=== PATIENT | male | born 1995 | race Caucasian/White ===

== ENCOUNTER 2016-12-17 03:20 | Emergency (ER) | payer BC ==
[2016-12-17] MEDS ORDERED: HYDROmorphone HCL 1 MG/ML SYRINGE (J1170) As Ordered ONE (03:43)
[2016-12-17] MEDS ORDERED: PROPOFOL 200 MG/20 ML VIAL As Ordered ONE (04:07)
--- NOTE | 2016-12-17 04:58 | EDDOCDS ---
Physician Documentation [facility] Name: Brian Aguilera Age: 20 yrs Sex: Male : 1995 Arrival Date: 12/17/2016 Time: 03:20 Bed 3 Private MD: Disposition: 12/17/16 04:19 Discharged to Home/Self Care. Impression: Posterior dislocation of left ulnohumeral joint. - Condition is Stable. - Work Release Form - 1 day, Medication Reconciliation, Local Pharmacy Hours form. - Follow up: Praveen Walter; When: Call to arrange an appointment; Reason: Recheck today's complaints. - Problem is new. - Symptoms are resolved. Historical: - Allergies: No known drug Allergies; - PMHx: none; - PSHx: none; - Social history: Smoking status: Patient states was never smoker of tobacco. No barriers to communication noted, The patient speaks fluent Chinese, Speaks appropriately for age. - Family history: Not pertinent. - : The pt / caregiver states he / she is not on anticoagulants. Home medication list is obtained from the patient. - Exposure Risk Screening:: None identified. Vital Signs: 12/17 03:29 BP 141 / 81; Pulse 80; Resp 18; Temp 98.6(O); Pulse Ox 98% on R/A; Weight 90.72 kg / kmg1 200 lbs (R); Height 5 ft. 10 in. (177.80 cm) (R); Pain 6/10; 04:13 BP 156 / 89 (auto/); af2 04:13 BP 160 / 83 (auto/); af2 04:13 Pulse 90 MON; Resp 18; Pulse Ox 100% on 2 lpm NC; af2 04:14 Pulse 81 MON; Resp 18 S; Pulse Ox 100% on 2 lpm NC; af2 04:19 BP 167 / 96 (auto/); af2 04:20 Pulse 77 MON; Resp 18 S; Pulse Ox 98% on 2 lpm NC; af2 04:23 Pulse 75 MON; Resp 18 S; Pulse Ox 98% on 2 lpm NC; af2 04:24 BP 162 / 78 (auto/); af2 04:28 BP 166 / 79 (auto/); af2 04:28 Pulse 74 MON; Resp 18 S; Pulse Ox 98% on 2 lpm NC; af2 04:31 BP 167 / 78 (auto/); af2 04:32 Pulse 72 MON; Resp 18 S; Pulse Ox 99% on 2 lpm NC; af2 04:33 BP 163 / 75 (auto/); af2 04:33 Pulse 73 MON; Resp 18 S; Pulse Ox 99% on 2 lpm NC; af2 04:38 BP 162 / 74 (auto/); af2 04:38 Pulse 80 MON; Resp 18 S; Pulse Ox 98% on 2 lpm NC; af2 03:29 Body Mass Index 28.70 (90.72 kg, 177.80 cm) [facility] [place] Procedures: 04:17 Moderate sedation: Pre-procedure assessment: ASA physical classification: I - healthy, cs11 no underlying organic disease, Airway assessment: able to hyperextend neck, able to maintain airway, can open mouth without difficulty, Mallampati classification of tongue size: I - faucial pillars, soft palate, and uvula can be fully visualized, Monitoring during procedure: nurse at bedside at all times, automatic splicing machine operator, continuous pulse oximetry, Medications employed: Propofol _ mg? 100 mgs. Post-procedure assessment: the patient is not sedated, Respiratory status: even and unlabored, Total time spent by provider performing sedation 15 minutes. 04:17 Joint Reduction: of the left elbow, using traction, manipulation, Patient tolerated cs11 well. Post reduction film - reveals normal alignment. MDM: 03:39 Elbow, (AP\E\Lat) Ordered. EDMS 03:42 Dilaudid - HYDROmorphone 1 mg IM once ordered. cs11 03:57 IV Saline Lock ordered. cs11 03:59 Elbow, (AP\E\Lat) Ordered. EDMS 04:06 NS 0.9% 1000 ml IV at bolus once ordered. cs11 04:06 Oxygen at 2L/min via NC ordered. cs11 04:21 Sling ordered. cs11 04:21 Propofol (PF) 100 mg IVP once ordered. cs11 04:32 Financial registration complete. hs2 04:42 [facility] [place] Agreement was scanned into [employer] and attached to record. hs2 Administered Medications: 03:49 Drug: Dilaudid - HYDROmorphone 1 mg [hydromorphone 1 mg/mL injection syringe (1 mL)] af2 Route: IM; Site: right deltoid; 04:30 Follow up: Response: Pain is decreased af2 04:15 Drug: Propofol (PF) 100 mg [propofol (PF) 200 mg/20 mL (10 mg/mL) intravenous emulsion af2 (10 mL)] Route: IVP; Site: right antecubital; 04:44 Follow up: Response: No Adverse Reaction af2 04:20 Drug: NS 0.9% 1000 ml [sodium chloride 0.9 % intravenous solution] Route: IV; Rate: af2 bolus; Site: right antecubital; Signatures: Dispatcher [employer] Malini Bills RN RN kmg1 Cristino Ramírez DO DO cs11 Tali Reyes RN RN af2 Kailey Deshpande, Reg Reg hs2 The chart was reviewed and I authenticate all verbal orders and agree with the evaluation and treatment provided.Attachments: 04:42 [facility] Payment Agreement hs2 MTDD
--- NOTE | 2016-12-17 04:58 | EDDOCDS ---
Nurse's Notes [facility] Name: Brian Aguilera Age: 20 yrs Sex: Male : 1995 Arrival Date: 12/17/2016 Time: 03:20 Bed 3 Private MD: Diagnosis: Posterior dislocation of left ulnohumeral joint Presentation: 12/17 03:26 Presenting complaint: Patient states: Was wrestling with his cousin and injured left kmg1 elbow. Suicide/Homicide risk assessment- the patient denies having any suicidal and/or homicidal ideations and does not present with any other emotional, behavioral or mental health complaints. Status: Patient is not a coordinator of genetic services or dependent. Transition of care: patient was not received from another setting of care. 03:26 Acuity: STEPHON Level 3 [facility] [place] 03:26 Method Of Arrival: Walkin/Carried/Asstd [facility] [place] 04:55 Adult Sepsis Screening: The patient does not have new or worsening altered mentation. af2 Patient's respiratory rate is less than 22. Systolic blood pressure is greater than 100. Patient has a qSOFA score of 0- Negative Sepsis Screen. Triage Assessment: 03:29 General: Appears in no apparent distress, uncomfortable, Behavior is appropriate for km age, cooperative, pleasant. Pain: Location: left elbow Pain currently is 6 out of 10 on a pain scale. Quality of pain is described as aching. Pt Declines HIV testing. Musculoskeletal: Circulation, motion, and sensation intact Capillary refill < 3 seconds. Historical: - Allergies: No known drug Allergies; - PMHx: none; - PSHx: none; - Social history: Smoking status: Patient states was never smoker of tobacco. No barriers to communication noted, The patient speaks fluent Irish, Speaks appropriately for age. - Family history: Not pertinent. - : The pt / caregiver states he / she is not on anticoagulants. Home medication list is obtained from the patient. - Exposure Risk Screening:: None identified. Screenin:52 Screening information is obtained from the patient. Fall risk: No risks identified. af2 Assistance ADL's: requires no assistance with activities of daily living. Abuse/DV Screen: The patient / caregiver reports he/she is: not in a situation that causes fear, pain or injury. Nutritional screening: No deficits noted. Advance Directives: Currently, there is no health care proxy. home support is adequate. Assessment: 03:51 General: Appears in no apparent distress, uncomfortable, Behavior is cooperative. af2 Musculoskeletal: Range of motion intact in left arm and left elbow Bony deformity noted of left elbow Swelling present in left elbow. 04:27 General: pt tolerated procedure well, A&Ox3. resp easy and unlabored.. af2 Vital Signs: 03:29 BP 141 / 81; Pulse 80; Resp 18; Temp 98.6(O); Pulse Ox 98% on R/A; Weight 90.72 kg (R); kmg1 Height 5 ft. 10 in. (177.80 cm) (R); Pain 6/10; 04:13 BP 156 / 89 (auto/); af2 04:13 BP 160 / 83 (auto/); af2 04:13 Pulse 90 MON; Resp 18; Pulse Ox 100% on 2 lpm NC; af2 04:14 Pulse 81 MON; Resp 18 S; Pulse Ox 100% on 2 lpm NC; af2 04:19 BP 167 / 96 (auto/); af2 04:20 Pulse 77 MON; Resp 18 S; Pulse Ox 98% on 2 lpm NC; af2 04:23 Pulse 75 MON; Resp 18 S; Pulse Ox 98% on 2 lpm NC; af2 04:24 BP 162 / 78 (auto/); af2 04:28 BP 166 / 79 (auto/); af2 04:28 Pulse 74 MON; Resp 18 S; Pulse Ox 98% on 2 lpm NC; af2 04:31 BP 167 / 78 (auto/); af2 04:32 Pulse 72 MON; Resp 18 S; Pulse Ox 99% on 2 lpm NC; af2 04:33 BP 163 / 75 (auto/); af2 04:33 Pulse 73 MON; Resp 18 S; Pulse Ox 99% on 2 lpm NC; af2 04:38 BP 162 / 74 (auto/); af2 04:38 Pulse 80 MON; Resp 18 S; Pulse Ox 98% on 2 lpm NC; af2 03:29 Body Mass Index 28.70 (90.72 kg, 177.80 cm) [facility] [place] Vitals: 03:29 Log In Time: December 17, 2016 at 03:22. [facility] [place] ED Course: 03:21 Patient visited by Kailey Deshpande, Reg. hs2 03:21 Patient moved to Waiting hs2 03:27 Triage Initiated kmg1 03:36 Patient visited by Malini Gilliam, ABIGAIL. kmg1 03:36 Patient moved to 10 sls1 03:37 Cristino Ramírez DO is Attending Physician. cs11 03:37 Patient visited by Cristino Ramírez DO. cs11 03:53 Patient visited by Tali Reyes RN. af2 03:53 The patient / caregiver is instructed regarding the plan of care and ED course. Patient af2 has correct armband on for positive identification. 04:09 Patient moved to 3 [facility] 04:18 Praveen Walter is Referral Physician. cs11 04:26 Inserted saline lock: 18 gauge in right antecubital area The patient tolerated the af2 procedure well. 04:26 Assisted Provider with Joint reduction. af2 04:27 Patient visited by Tali Reyes RN. af2 04:42 Patient visited by Tali Reyes RN. af2 04:42 [facility] Payment Agreement was scanned into [employer] and attached to record. hs2 04:47 Patient name changed from Brian\S\L\S\Gordinier\S\ to Brian\S\Erasmo\S\Gordinier. EDMS M. Sedation: 04:22 Pre-procedure: Name of procedure: reduction of left elbow Monitoring RN: Tali mitchell2 RN Other Staff: Manuel Brown, RT; Dr. Ramírez Reviewed instructions and expectations with patient, patient's mother, Has had drug/anesthesia reactions to no Reviewed patient's current meds list. surveillance analyst on. Cardiac rhythm Sinus rhythm Pulse ox on. Oxygen via nasal cannula \T\ 2L/min 04:22 Q 5 minute assessment Level of Consciousness: Alert / Oriented Color: Pale Skin: Warm / Dry Pain: 04:22 See Trend VS 04:22 Intra-procedure: Procedure began at 04:15 Patient response: remains sedated, skin warm/dry, moaning, obeys commands, resps even/unlabored, IV patent. 04:22 Post-procedure: Procedure ended at 04:17 the total procedure time was less than 30 minutes. Administered Medications: 03:49 Drug: Dilaudid - HYDROmorphone 1 mg [hydromorphone 1 mg/mL injection syringe (1 mL)] af2 Route: IM; Site: right deltoid; 04:30 Follow up: Response: Pain is decreased af2 04:15 Drug: Propofol (PF) 100 mg [propofol (PF) 200 mg/20 mL (10 mg/mL) intravenous emulsion af2 (10 mL)] Route: IVP; Site: right antecubital; 04:44 Follow up: Response: No Adverse Reaction af2 04:20 Drug: NS 0.9% 1000 ml [sodium chloride 0.9 % intravenous solution] Route: IV; Rate: af2 bolus; Site: right antecubital; RT: 04:17 Sedation Time: 30Minutes. O2 via nasal cannula \T\ 2L/min. jc3 Order Results: There are currently no results for this order. Outcome: 04:19 Discharge ordered by Provider. cs11 04:54 Discharge Assessment: Patient awake, alert and oriented x 3. No cognitive and/or af2 functional deficits noted. Patient verbalized understanding of disposition instructions. patient administered narcotics - yes. Pt provided with safe discharge. The following High Risk Discharge criteria are identified: None. Discharged to home ambulatory, with parent. Condition: stable. Discharge instructions given to patient, parents Instructed on discharge instructions, follow up and referral plans. medication usage, no driving heavy equipment, Demonstrated understanding of instructions, medications, Pt was receptive of discharge instructions/ teaching. No special radiology studies were completed. Property :Personal belongings accompany Pt. 04:56 Patient left the ED. af2 Signatures: Dispatcher [employer] EDMS Malini Gilliam, RN RN kmg1 Anthony Mirza jc3 Aubrie Cody RN RN sls1 Cristino Ramírez, DO cs11 Zuri Anthony, Building Construction Supervisor Unit Tali Thomson RN RN af2 Kailey Deshpande, Reg Reg hs2 MTDD
--- NOTE | 2016-12-17 07:29 | REP ---
Clinical: Trauma. Technique: AP and lateral views. Findings: Lateral view demonstrates posterior dislocation at the elbow. No obvious acute fracture. Impression: Posterior dislocation at the elbow. Signed by Aguilar Flores MD 12/17/2016 07:20 A
--- NOTE | 2016-12-17 07:34 | REP ---
Clinical: Status post reduction. Technique: Single portable lateral view of the left elbow. Findings: Satisfactory reduction is appreciated when compared to prior examination. No obvious acute fracture. Joint effusion and elevation of the anterior fat pad noted. Follow-up examination in 5-7 days may be warranted to evaluate for small occult fracture. Impression: Satisfactory reduction. Elevation of the anterior fat pad with suspected underlying effusion. Consider repeat evaluation in 5-7 days to evaluate for subtle occult injury. Signed by Aguilar Flores MD 12/17/2016 07:25 A
--- NOTE | 2016-12-19 05:57 | EDDOCDS ---
Nurse's Notes [facility] Name: Brian Aguilera Age: 20 yrs Sex: Male : 1995 Arrival Date: 12/17/2016 Time: 03:20 Bed 3 Private MD: Diagnosis: Posterior dislocation of left ulnohumeral joint Presentation: 12/17 03:26 Presenting complaint: Patient states: Was wrestling with his cousin and injured left kmg1 elbow. Suicide/Homicide risk assessment- the patient denies having any suicidal and/or homicidal ideations and does not present with any other emotional, behavioral or mental health complaints. Status: Patient is not a adult services librarian or dependent. Transition of care: patient was not received from another setting of care. 03:26 Acuity: [place] Level 3 [facility] [place] Method Of Arrival: [place]in[place] [facility] [place] 04:55 Adult Sepsis Screening: The patient does not have new or worsening altered mentation. af2 Patient's respiratory rate is less than 22. Systolic blood pressure is greater than 100. Patient has a qSOFA score of 0- Negative Sepsis Screen. Triage Assessment: 03:29 General: Appears in no apparent distress, uncomfortable, Behavior is appropriate for km age, cooperative, pleasant. Pain: Location: left elbow Pain currently is 6 out of 10 on a pain scale. Quality of pain is described as aching. Pt Declines HIV testing. Musculoskeletal: Circulation, motion, and sensation intact Capillary refill < 3 seconds. Historical: - Allergies: No known drug Allergies; - PMHx: none; - PSHx: none; - Social history: Smoking status: Patient states was never smoker of tobacco. No barriers to communication noted, The patient speaks fluent Arabic, Speaks appropriately for age. - Family history: Not pertinent. - : The pt / caregiver states he / she is not on anticoagulants. Home medication list is obtained from the patient. - Exposure Risk Screening:: None identified. Screenin:52 Screening information is obtained from the patient. Fall risk: No risks identified. af2 Assistance ADL's: requires no assistance with activities of daily living. Abuse/DV Screen: The patient / caregiver reports he/she is: not in a situation that causes fear, pain or injury. Nutritional screening: No deficits noted. Advance Directives: Currently, there is no health care proxy. home support is adequate. Assessment: 03:51 General: Appears in no apparent distress, uncomfortable, Behavior is cooperative. af2 Musculoskeletal: Range of motion intact in left arm and left elbow Bony deformity noted of left elbow Swelling present in left elbow. 04:27 General: pt tolerated procedure well, A&Ox3. resp easy and unlabored.. af2 Vital Signs: 03:29 BP 141 / 81; Pulse 80; Resp 18; Temp 98.6(O); Pulse Ox 98% on R/A; Weight 90.72 kg (R); kmg1 Height 5 ft. 10 in. (177.80 cm) (R); Pain 6/10; 04:13 BP 156 / 89 (auto/); af2 04:13 BP 160 / 83 (auto/); af2 04:13 Pulse 90 MON; Resp 18; Pulse Ox 100% on 2 lpm NC; af2 04:14 Pulse 81 MON; Resp 18 S; Pulse Ox 100% on 2 lpm NC; af2 04:19 BP 167 / 96 (auto/); af2 04:20 Pulse 77 MON; Resp 18 S; Pulse Ox 98% on 2 lpm NC; af2 04:23 Pulse 75 MON; Resp 18 S; Pulse Ox 98% on 2 lpm NC; af2 04:24 BP 162 / 78 (auto/); af2 04:28 BP 166 / 79 (auto/); af2 04:28 Pulse 74 MON; Resp 18 S; Pulse Ox 98% on 2 lpm NC; af2 04:31 BP 167 / 78 (auto/); af2 04:32 Pulse 72 MON; Resp 18 S; Pulse Ox 99% on 2 lpm NC; af2 04:33 BP 163 / 75 (auto/); af2 04:33 Pulse 73 MON; Resp 18 S; Pulse Ox 99% on 2 lpm NC; af2 04:38 BP 162 / 74 (auto/); af2 04:38 Pulse 80 MON; Resp 18 S; Pulse Ox 98% on 2 lpm NC; af2 03:29 Body Mass Index 28.70 (90.72 kg, 177.80 cm) [facility] [place]als: 03:29 Log In Time: December 17, 2016 at 03:22. [facility] [place] [place] Course: 03:21 Patient visited by Kailey Deshpande, Reg. hs2 03:21 Patient moved to Waiting hs2 03:27 Triage Initiated kmg1 03:36 Patient visited by Malini Gilliam, ABIGAIL. kmg1 03:36 Patient moved to 10 sls1 03:37 Cristino Ramírez DO is Attending Physician. cs11 03:37 Patient visited by Cristino Ramírez DO. cs11 03:53 Patient visited by Tali Reyes RN. af2 03:53 The patient / caregiver is instructed regarding the plan of care and ED course. Patient af2 has correct armband on for positive identification. 04:09 Patient moved to 3 [facility] 04:18 Praveen Walter is Referral Physician. cs11 04:26 Inserted saline lock: 18 gauge in right antecubital area The patient tolerated the af2 procedure well. 04:26 Assisted Provider with Joint reduction. af2 04:27 Patient visited by Tali Reyes RN. af2 04:42 Patient visited by Tali Reyes RN. af2 04:42 [facility] [place] [place] Payment Agreement was scanned into [employer] and attached to record. hs2 04:47 Patient name changed from Biran\S\L\S\Gordinier\S\ to Brian\S\Erasmo\S\Gordinier. EDMS 07:30 Elbow, (AP\E\Lat) Returned. EDMS 07:59 Elbow, (AP\E\Lat) Returned. EDMS 08:30 T-Sheet-- Draft Copy was scanned into [employer] and attached to record. [facility] 12/18 16:21 Consents was scanned into [employer] and attached to record. 16:21 [place] Protocol was scanned into [employer] and attached to record. alphonse Sosa Sedation: 12/17 04:22 Pre-procedure: Name of procedure: reduction of left elbow Monitoring RN: Tali mitchell2 RN Other Staff: Manuel Brown, RT; Dr. Ramírez Reviewed instructions and expectations with patient, patient's mother, Has had drug/anesthesia reactions to no Reviewed patient's current meds list. spine nurse on. Cardiac rhythm Sinus rhythm Pulse ox on. Oxygen via nasal cannula \T\ 2L/min Q 5 minute assessment Level of Consciousness: Alert / Oriented Color: Pale Skin: Warm / Dry Pain: 10 / 10 See Trend VS Intra-procedure: Procedure began at 04:15 Patient response: remains sedated, skin warm/dry, moaning, obeys commands, resps even/unlabored, IV patent. Post-procedure: Procedure ended at 04:17 the total procedure time was less than 30 minutes. Administered Medications: 03:49 Drug: Dilaudid - HYDROmorphone 1 mg [hydromorphone 1 mg/mL injection syringe (1 mL)] af2 Route: IM; Site: right deltoid; 04:30 Follow up: Response: Pain is decreased af2 04:15 Drug: Propofol (PF) 100 mg [propofol (PF) 200 mg/20 mL (10 mg/mL) intravenous emulsion af2 (10 mL)] Route: IVP; Site: right antecubital; 04:44 Follow up: Response: No Adverse Reaction af2 04:20 Drug: NS 0.9% 1000 ml [sodium chloride 0.9 % intravenous solution] Route: IV; Rate: af2 bolus; Site: right antecubital; Attachments: 12/18 16:21 Consents 16:21 [place] Protocol gb RT: 12/17 04:17 Sedation Time: 30Minutes. O2 via nasal cannula \T\ 2L/min. jc3 Order Results: Radiology Order: Elbow, (AP\E\Lat) Test: Elbow, (AP\E\Lat) REASON FOR EXAMINATION: Trauma; Clinical: Trauma.; ; Technique: AP and lateral views.; ; Findings:; Lateral view demonstrates posterior dislocation at the elbow. No obvious acute; fracture.; ; Impression:; Posterior dislocation at the elbow.; ; ; Signed by; Aguilar Flores MD 12/17/2016 07:20 A; Radiology Order: Elbow, (AP\E\Lat) Test: Elbow, (AP\E\Lat) REASON FOR EXAMINATION: redux; Clinical: Status post reduction.; ; Technique: Single portable lateral view of the left elbow.; ; Findings:; Satisfactory reduction is appreciated when compared to prior examination. No; obvious acute fracture. Joint effusion and elevation of the anterior fat pad; noted. Follow-up examination in 5-7 days may be warranted to evaluate for small; occult fracture.; ; Impression:; Satisfactory reduction.; Elevation of the anterior fat pad with suspected underlying effusion.; Consider repeat evaluation in 5-7 days to evaluate for subtle occult injury.; ; ; Signed by; Aguilar Flores MD 12/17/2016 07:25 A; Outcome: 04:19 Discharge ordered by Provider. cs11 04:54 Discharge Assessment: Patient awake, alert and oriented x 3. No cognitive and/or af2 functional deficits noted. Patient verbalized understanding of disposition instructions. patient administered narcotics - yes. Pt provided with safe discharge. The following High Risk Discharge criteria are identified: None. Discharged to home ambulatory, with parent. Condition: stable. Discharge instructions given to patient, parents Instructed on discharge instructions, follow up and referral plans. medication usage, no driving heavy equipment, Demonstrated understanding of instructions, medications, Pt was receptive of discharge instructions/ teaching. No special radiology studies were completed. Property :Personal belongings accompany Pt. 04:56 Patient left the ED. af2 Signatures: Dispatcher [employer] EDMS Malini Gilliam, RN RN kmg1 Dixie Duarte, Reg Reg gb Anthony Mirza jc3 Aubrie Cody RN RN sls1 Cristino Ramírez, DO DO cs11 Zuri Anthony, Nursing Staff Development Coordinator Unit Tali Thomson RN RN af2 Kailey Deshpande, Reg Reg hs2 Reshma Driver Chart Complete [facility]
--- NOTE | 2016-12-19 05:57 | EDDOCDS ---
Physician Documentation [facility] Name: Brian Aguilera Age: 20 yrs Sex: Male : 1995 Arrival Date: 12/17/2016 Time: 03:20 Bed 3 Private MD: Disposition: 12/17/16 04:19 Discharged to Home/Self Care. Impression: Posterior dislocation of left ulnohumeral joint. - Condition is Stable. - Work Release Form - 1 day, Medication Reconciliation, Local Pharmacy Hours form. - Follow up: Praveen Walter; When: Call to arrange an appointment; Reason: Recheck today's complaints. - Problem is new. - Symptoms are resolved. Historical: - Allergies: No known drug Allergies; - PMHx: none; - PSHx: none; - Social history: Smoking status: Patient states was never smoker of tobacco. No barriers to communication noted, The patient speaks fluent Armenian, Speaks appropriately for age. - Family history: Not pertinent. - : The pt / caregiver states he / she is not on anticoagulants. Home medication list is obtained from the patient. - Exposure Risk Screening:: None identified. Vital Signs: 12/17 03:29 BP 141 / 81; Pulse 80; Resp 18; Temp 98.6(O); Pulse Ox 98% on R/A; Weight 90.72 kg / kmg1 200 lbs (R); Height 5 ft. 10 in. (177.80 cm) (R); Pain 6/10; 04:13 BP 156 / 89 (auto/); af2 04:13 BP 160 / 83 (auto/); af2 04:13 Pulse 90 MON; Resp 18; Pulse Ox 100% on 2 lpm NC; af2 04:14 Pulse 81 MON; Resp 18 S; Pulse Ox 100% on 2 lpm NC; af2 04:19 BP 167 / 96 (auto/); af2 04:20 Pulse 77 MON; Resp 18 S; Pulse Ox 98% on 2 lpm NC; af2 04:23 Pulse 75 MON; Resp 18 S; Pulse Ox 98% on 2 lpm NC; af2 04:24 BP 162 / 78 (auto/); af2 04:28 BP 166 / 79 (auto/); af2 04:28 Pulse 74 MON; Resp 18 S; Pulse Ox 98% on 2 lpm NC; af2 04:31 BP 167 / 78 (auto/); af2 04:32 Pulse 72 MON; Resp 18 S; Pulse Ox 99% on 2 lpm NC; af2 04:33 BP 163 / 75 (auto/); af2 04:33 Pulse 73 MON; Resp 18 S; Pulse Ox 99% on 2 lpm NC; af2 04:38 BP 162 / 74 (auto/); af2 04:38 Pulse 80 MON; Resp 18 S; Pulse Ox 98% on 2 lpm NC; af2 03:29 Body Mass Index 28.70 (90.72 kg, 177.80 cm) [facility] [place]: 04:17 Moderate sedation: Pre-procedure assessment: ASA physical classification: I - healthy, cs11 no underlying organic disease, Airway assessment: able to hyperextend neck, able to maintain airway, can open mouth without difficulty, Mallampati classification of tongue size: I - faucial pillars, soft palate, and uvula can be fully visualized, Monitoring during procedure: nurse at bedside at all times, electronic device monitor, continuous pulse oximetry, Medications employed: Propofol _ mg? 100 mgs. Post-procedure assessment: the patient is not sedated, Respiratory status: even and unlabored, Total time spent by provider performing sedation 15 minutes. 04:17 Joint Reduction: of the left elbow, using traction, manipulation, Patient tolerated cs11 well. Post reduction film - reveals normal alignment. MDM: 03:39 Elbow, (AP\E\Lat) Ordered. EDMS 03:42 Dilaudid - HYDROmorphone 1 mg IM once ordered. cs11 03:57 IV Saline Lock ordered. cs11 03:59 Elbow, (AP\E\Lat) Ordered. EDMS 04:06 NS 0.9% 1000 ml IV at bolus once ordered. cs11 04:06 Oxygen at 2L/min via NC ordered. cs11 04:21 Sling ordered. cs11 04:21 Propofol (PF) 100 mg IVP once ordered. cs11 04:32 Financial registration complete. hs2 04:42 [facility] [place] Payment Agreement was scanned into [employer] and attached to record. hs2 08:30 T-Sheet-- Draft Copy was scanned into [employer] and attached to record. se 12/18 16:21 Consents was scanned into [employer] and attached to record. gb 16:21 [place] Protocol was scanned into [employer] and attached to record. Administered Medications: 12/17 03:49 Drug: Dilaudid - HYDROmorphone 1 mg [hydromorphone 1 mg/mL injection syringe (1 mL)] af2 Route: IM; Site: right deltoid; 04:30 Follow up: Response: Pain is decreased af2 04:15 Drug: Propofol (PF) 100 mg [propofol (PF) 200 mg/20 mL (10 mg/mL) intravenous emulsion af2 (10 mL)] Route: IVP; Site: right antecubital; 04:44 Follow up: Response: No Adverse Reaction af2 04:20 Drug: NS 0.9% 1000 ml [sodium chloride 0.9 % intravenous solution] Route: IV; Rate: af2 bolus; Site: right antecubital; Signatures: Dispatcher [employer] EDMS Malini Gilliam RN RN kmg1 Dixie Duarte, Reg Reg gb Cristino Ramírez, DO cs11 Tali Reyes RN RN af2 Kailey Deshpande, Reg Reg hs2 Reshma Driver [facility] The chart was reviewed and I authenticate all verbal orders and agree with the evaluation and treatment provided.Attachments: 04:42 [facility] Payment Agreement hs2 08:30 T-Sheet-- Draft Copy [facility] Chart Complete MTDD
--- NOTE | 2016-12-19 05:57 | EDDOCDS ---
Physician Documentation [facility] Name: Brian Aguilera Age: 20 yrs Sex: Male : 1995 Arrival Date: 12/17/2016 Time: 03:20 Bed 3 Private MD: Disposition: 12/17/16 04:19 Discharged to Home/Self Care. Impression: Posterior dislocation of left ulnohumeral joint. - Condition is Stable. - Work Release Form - 1 day, Medication Reconciliation, Local Pharmacy Hours form. - Follow up: Praveen Walter; When: Call to arrange an appointment; Reason: Recheck today's complaints. - Problem is new. - Symptoms are resolved. Historical: - Allergies: No known drug Allergies; - PMHx: none; - PSHx: none; - Social history: Smoking status: Patient states was never smoker of tobacco. No barriers to communication noted, The patient speaks fluent Vietnamese, Speaks appropriately for age. - Family history: Not pertinent. - : The pt / caregiver states he / she is not on anticoagulants. Home medication list is obtained from the patient. - Exposure Risk Screening:: None identified. Vital Signs: 12/17 03:29 BP 141 / 81; Pulse 80; Resp 18; Temp 98.6(O); Pulse Ox 98% on R/A; Weight 90.72 kg / kmg1 200 lbs (R); Height 5 ft. 10 in. (177.80 cm) (R); Pain 6/10; 04:13 BP 156 / 89 (auto/); af2 04:13 BP 160 / 83 (auto/); af2 04:13 Pulse 90 MON; Resp 18; Pulse Ox 100% on 2 lpm NC; af2 04:14 Pulse 81 MON; Resp 18 S; Pulse Ox 100% on 2 lpm NC; af2 04:19 BP 167 / 96 (auto/); af2 04:20 Pulse 77 MON; Resp 18 S; Pulse Ox 98% on 2 lpm NC; af2 04:23 Pulse 75 MON; Resp 18 S; Pulse Ox 98% on 2 lpm NC; af2 04:24 BP 162 / 78 (auto/); af2 04:28 BP 166 / 79 (auto/); af2 04:28 Pulse 74 MON; Resp 18 S; Pulse Ox 98% on 2 lpm NC; af2 04:31 BP 167 / 78 (auto/); af2 04:32 Pulse 72 MON; Resp 18 S; Pulse Ox 99% on 2 lpm NC; af2 04:33 BP 163 / 75 (auto/); af2 04:33 Pulse 73 MON; Resp 18 S; Pulse Ox 99% on 2 lpm NC; af2 04:38 BP 162 / 74 (auto/); af2 04:38 Pulse 80 MON; Resp 18 S; Pulse Ox 98% on 2 lpm NC; af2 03:29 Body Mass Index 28.70 (90.72 kg, 177.80 cm) [facility] [place] Procedures: 04:17 Moderate sedation: Pre-procedure assessment: ASA physical classification: I - healthy, cs11 no underlying organic disease, Airway assessment: able to hyperextend neck, able to maintain airway, can open mouth without difficulty, Mallampati classification of tongue size: I - faucial pillars, soft palate, and uvula can be fully visualized, Monitoring during procedure: nurse at bedside at all times, sanitation inspector, continuous pulse oximetry, Medications employed: Propofol _ mg? 100 mgs. Post-procedure assessment: the patient is not sedated, Respiratory status: even and unlabored, Total time spent by provider performing sedation 15 minutes. 04:17 Joint Reduction: of the left elbow, using traction, manipulation, Patient tolerated cs11 well. Post reduction film - reveals normal alignment. MDM: 03:39 Elbow, (AP\E\Lat) Ordered. EDMS 03:42 Dilaudid - HYDROmorphone 1 mg IM once ordered. cs11 03:57 IV Saline Lock ordered. cs11 03:59 Elbow, (AP\E\Lat) Ordered. EDMS 04:06 NS 0.9% 1000 ml IV at bolus once ordered. cs11 04:06 Oxygen at 2L/min via NC ordered. cs11 04:21 Sling ordered. cs11 04:21 Propofol (PF) 100 mg IVP once ordered. cs11 04:32 Financial registration complete. hs2 04:42 [place] [place] was scanned into [employer] and attached to record. hs2 08:30 T-Sheet-- Draft Copy was scanned into [employer] and attached to record. se 12/18 16:21 Consents was scanned into [employer] and attached to record. gb 16:21 [place] Protocol was scanned into [employer] and attached to record. Administered Medications: 12/17 03:49 Drug: Dilaudid - HYDROmorphone 1 mg [hydromorphone 1 mg/mL injection syringe (1 mL)] af2 Route: IM; Site: right deltoid; 04:30 Follow up: Response: Pain is decreased af2 04:15 Drug: Propofol (PF) 100 mg [propofol (PF) 200 mg/20 mL (10 mg/mL) intravenous emulsion af2 (10 mL)] Route: IVP; Site: right antecubital; 04:44 Follow up: Response: No Adverse Reaction af2 04:20 Drug: NS 0.9% 1000 ml [sodium chloride 0.9 % intravenous solution] Route: IV; Rate: af2 bolus; Site: right antecubital; Signatures: Dispatcher [employer] EDMS Malini Gilliam RN RN kmg1 Dixie Duarte, Reg Reg gb Cristino Ramírez, DO cs11 Tali Reyes RN RN af2 Kailey Deshpande, Reg Reg hs2 Reshma Driver [facility] The chart was reviewed and I authenticate all verbal orders and agree with the evaluation and treatment provided.Attachments: 04:42 [facility] Payment Agreement hs2 08:30 T-Sheet-- Draft Copy [facility] Chart Complete MTDD
== END 2016-12-17 04:56 | disposition home or self-care (01) ==
LOC: M ED 03:20
DX: S53.122A Posterior subluxation of left ulnohumeral joint, initial encounter (principal); X58.XXXA Exposure to other specified factors, initial encounter; Y92.018 Other place in single-family (private) house as the place of occurrence of the external cause; Y93.83 Activity, rough housing and horseplay; Y99.8 Other external cause status
CPT/HCPCS: 24600; 73070; 93041; 96372; 96374; 99285; J1170